=== PATIENT | male | born 1950 | race Caucasian/White ===

== ENCOUNTER 2020-04-09 08:28 | Emergency (ER) | payer MEDICARE ==
[~2020-04-09] VITALS: Ht 177.8 cm; Wt 90.9 kg
[2020-04-09 08:32] VITALS: PULSE 82; TEMP 98.8
[2020-04-09] MEDS ORDERED: VALTREX1 GM PO (08:57)
[2020-04-09] MEDS ORDERED: NAPROXEN 3375 MG/TAB PO (08:57)
[2020-04-09] MEDS ORDERED: NORCO 325 MG-51 TAB PO (08:57)
[2020-04-09 09:23] VITALS: BP 149/99
== END 2020-04-09 09:20 | disposition home or self-care (01) ==
LOC: COL.ER 08:28
DX: B02.9 Zoster without complications (principal)

== ENCOUNTER 2020-06-18 11:04 | Emergency (ER) | payer MEDICARE ==
[~2020-06-18] VITALS: Ht 177.8 cm; Wt 90.9 kg
[~2020-06-18 11:04] MED LIST: NAPROXEN 3375 MG/TAB PO; NORCO 325 MG-51 TAB PO; VALTREX1 GM PO
[2020-06-18 11:07] VITALS: TEMP 97.4
[2020-06-18 11:43] LABS: BASO % 0.2 % (0.0-2.0); GRAN # 7.7 (1.4-6.5); GRAN % 84.1 % (42.2-75.2); HEMOGLOBIN 16.8 g/dl (13.5-18.0); LYMPH # 0.9 (1.2-3.4); LYMPH % 9.9 % (20.0-51.0); MEAN CELL VOLUME 94 fl (80.0-100.0); MEAN CORPUSCULAR HEMOGLOBIN 32 pg (27.0-31.0); MEAN CORPUSCULAR HGB CONC 34 g/dl (33.0-37.0); MONO # 0.5 (0.1-0.6); MONO % 5.4 % (1.7-9.3); PLATELET COUNT 204 K/mm3 (130-400); RED BLOOD COUNT 5.22 M/mm3 (4.20-5.60); REDCELL DISTRIBUTION WIDTH-CV 13.1 % (11.5-14.5)
[2020-06-18 11:58] LABS: ALANINE AMINOTRANSFERASE 31 U/L (4-49); ALBUMIN 4.6 gm/dL (3.5-5.0); ALKALINE PHOSPHATASE 75 U/L (50-136); ANION GAP 8 mmol/L (7-16); AST,SGOT 38 U/L (15-37); BILIRUBIN,TOTAL 0.8 mg/dL (0.0-1.0); BLOOD UREA NITROGEN 22 mg/dL (9-20); CALCIUM 9.2 mg/dL (8.4-10.2); CARBON DIOXIDE 26 mmol/L (22-30); CHLORIDE 105 mmol/L (98-107); CREATININE, serum 1.38 (0.66-1.25); GLUCOSE 134 mg/dL (74-106); LIPASE 105 U/L (23-300); POTASSIUM 4.5 mmol/L (3.4-5.0); SODIUM 139 mmol/L (137-145); TOTAL PROTEIN 7.9 gm/dL (6.4-8.2)
[2020-06-18 11:59] LABS: C-REACTIVE PROTEIN < 0.5 mg/dL (0.0-0.9)
[2020-06-18] MEDS ORDERED: NORCO 325 MG-51 TAB PO ×2 (12:53→12:54)
[2020-06-18 13:04] VITALS: BP 150/88; PULSE 60
== END 2020-06-18 13:06 | disposition home or self-care (01) ==
LOC: COL.ER 11:04
PROVIDERS: Family Medicine
DX: N20.1 Calculus of ureter (principal); Z79.1 Long term (current) use of non-steroidal anti-inflammatories (NSAID)
CPT/HCPCS: J1885; J2270; J2405; J7120